=== PATIENT | female | born 1985 | race American Indian/Alaskan Native ===

== ENCOUNTER 2017-01-31 13:31 | Emergency (ER) | payer OTHER ==
[2017-01-31] MEDS: Albuterol-Ipratrop 3 mg / 0.5 (3 ml) UD IH SCH ×2 (14:00→14:15)
[2017-01-31] MEDS ORDERED: Albuterol-Ipratrop 3 mg / 0.5 (3 ml) UD ONE (14:01)
--- NOTE | 2017-01-31 14:03 | C.PDOC ---
History Of Present Illness 31 year old female, with past medical history of asthma, presents to Emergency Department for evaluation of cough and congestion for the last 2 days. Patient states that she felt short of breath today. Notes using her inhaler with no relief. Denies chest pain, fever, or chills. Time Seen by Provider: 01/31/17 13:47 Chief Complaint (Nursing): Shortness Of Breath History Per: Patient History/Exam Limitations: no limitations Onset/Duration Of Symptoms: Days (2) Current Symptoms Are (Timing): Still Present Location Of Pain: None Sick Contacts (Context): None Associated Symptoms: Cough, Nasal Congestion Ear Symptoms: Bilateral: None Recent travel outside of the [place]: No Additional History Per: Patient Past Medical History Reviewed: Historical Data, Nursing Documentation, Vital Signs Vital Signs: Last Vital Signs Temp 97.7 F 01/31/17 15:04 Pulse 91 H 01/31/17 15:04 Resp 18 01/31/17 15:04 BP 139/73 01/31/17 15:04 Pulse Ox 95 01/31/17 15:33 - Medical History PMH: Asthma, HTN Family History: States: Unknown Family Hx - Social History Hx Alcohol Use: No Hx Substance Use: No - Immunization History Hx Tetanus Toxoid Vaccination: Yes Hx Influenza Vaccination: No Hx Pneumococcal Vaccination: No Review Of Systems Constitutional: Negative for: Fever, Chills ENT: Positive for: Nose Congestion. Negative for: Nose Discharge, Throat Pain Cardiovascular: Negative for: Chest Pain, Palpitations Respiratory: Positive for: Cough, Shortness of Breath. Negative for: Sputum Gastrointestinal: Negative for: Nausea, Vomiting Physical Exam - Physical Exam Appears: Non-toxic, No Acute Distress Skin: Normal Color, Warm, Dry Head: Atraumatic, Normacephalic Eye(s): bilateral: Normal Inspection Oral Mucosa: Moist Neck: Supple Cardiovascular: Rhythm Regular, No Murmur Respiratory: No Rales, No Rhonchi, Wheezing (bilaterally) Gastrointestinal/Abdominal: Soft, No Tenderness Extremity: Normal ROM, No Pedal Edema Neurological/Psych: Oriented x3, Normal Speech ED Course And Treatment O2 Sat by Pulse Oximetry: 95 (on RA) Pulse Ox Interpretation: Normal Medical Decision Making Medical Decision Making: Plan: * Albuterol treatment * Prednisone Disposition Counseled Patient/Family Regarding: Diagnosis, Need For Followup, Rx Given - Disposition Disposition: HOME/ ROUTINE Disposition Time: 14:55 Condition: IMPROVED Additional Instructions: Follow up with your primary medical doctor or clinic in 2-5 days for further evaluation. Continue with your usual asthma medications at home. Return to the emergency department at any time if symptoms persist or worsen. 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 - Scribe Statement The provider has reviewed the documentation as recorded by the Scribe Sue Celaya All medical record entries made by the Scribe were at my direction and personally dictated by me. I have reviewed the chart and agree that the record accurately reflects my personal performance of the history, physical exam, medical decision making, and the department course for this patient. I have also personally directed, reviewed, and agree with the discharge instructions and disposition. Nebulizer Treatments/Peak Flow - Duonebs Number of Bronchodilator Doses given?: 2 - Pre/Post Peak Flow Pre Treatment Peak Flow: 170 Post treatment Peak Flow: 210 - Steroid Treatment Steroid: Oral (Prednisone) - Clinical Response Clinical Response: Improved Comment: lungs are now clear
[2017-01-31 15:04] VITALS: BP 139/73; PULSE 91; RESP 18; TEMP 97.7
[2017-01-31 15:32] VITALS: O2SAT 95
== END 2017-01-31 15:27 | disposition home or self-care (01) ==
LOC: C.ER 13:31
DX: J45.909 Unspecified asthma, uncomplicated (principal); I10 Essential (primary) hypertension

== ENCOUNTER 2018-04-01 09:27 | Emergency (ER) | payer OTHER ==
[2018-04-01 09:39] VITALS: O2SAT 100
[2018-04-01] MEDS ORDERED: Sodium Chloride 0.9% 1,000 ML IV ONE (10:38)
[2018-04-01 11:10] LABS: BASO % 0.4 % (0.0-2.0); EOS # 0.2 K/uL (0.0-0.7); HEMOGLOBIN 14.3 g/dL (11.0-16.0); LYMPH # 1.2 K/uL (1.0-4.3); LYMPH % 15.3 % (20.0-40.0); MEAN CELL VOLUME 95.2 fL (81.0-99.0); MEAN CORPUSCULAR HEMOGLOBIN 32.2 pg (27.0-31.0); MEAN CORPUSCULAR HGB CONC 33.8 g/dL (33.0-37.0); MEAN PLATELET VOLUME 7.8 fL (7.2-11.7); MONO # 0.4 K/uL (0.0-0.8); NEUT # 6.2 K/uL (1.8-7.0); NEUT % 77.3 % (50.0-75.0); NRBC % 0.1 % (0.0-2.0); RBC 4.44 Mil/uL (3.80-5.20); RED CELL DISTRIBUTION WIDTH 12.2 % (11.5-14.5)
[2018-04-01 11:32] LABS: BLOOD UREA NITROGEN 13 mg/dL (7-17); CALCIUM 8.8 mg/dl (8.6-10.4); GFR NON-AFRICAN AMERICAN > 60; LIPASE 17 U/L (23-300)
[2018-04-01 11:33] LABS: ALBUMIN 5.1 g/dL (3.5-5.0); URINE BILIRUBIN NEGATIVE (NEGATIVE); URINE BLOOD 2+ (NEGATIVE); URINE CLARITY Clear (Clear); URINE COLOR Yellow (YELLOW); URINE GLUCOSE (UA) NORMAL (Normal); URINE LEUKOCYTE ESTERASE NEG Leu/uL (Negative); URINE PROTEIN NEGATIVE (NEGATIVE); URINE UROBILINOGEN NORMAL mg/dL (0.2-1.0)
[2018-04-01 11:34] LABS: ALB/GLOB RATIO 1.4 (1.0-2.1); ALT/SGPT 23 U/L (9-52); AST/SGOT 49 U/L (14-36); SQUAMOUS EPITHIAL 6 /hpf (0-5)
--- NOTE | 2018-04-01 11:40 | C.PDOC ---
History Of Present Illness 33 year old female presents with complaints of nausea, vomiting, diarrhea, and generalized abdominal pain that started last night. Patient has tried drinking gingerale and eating crackers, however reports persistent vomiting and is unable to keep anything down. She denies any fevers or chills. No known sick contacts. No recent travel. Patient notes she ate [place] food last night. She denies any bloody stool or urinary complaints. Time Seen by Provider: 04/01/18 10:11 Chief Complaint (Nursing): Abdominal Pain History Per: Patient History/Exam Limitations: no limitations Onset/Duration Of Symptoms: Days (x 2) Current Symptoms Are (Timing): Still Present Severity: Moderate Location Of Pain/Discomfort: Diffuse Associated Symptoms: Nausea, Vomiting, Diarrhea Last Bowel Movement: Today Recent travel outside of the [place]: No Past Medical History Reviewed: Historical Data, Nursing Documentation, Vital Signs Vital Signs: Last Vital Signs Temp 97.4 F L 04/01/18 09:37 Pulse 64 04/01/18 09:37 Resp 18 04/01/18 09:37 BP 145/86 04/01/18 09:37 Pulse Ox 100 04/01/18 09:37 - Medical History PMH: Asthma, HTN Family History: States: Unknown Family Hx - Social History Hx Alcohol Use: No Hx Substance Use: No - Immunization History Hx Tetanus Toxoid Vaccination: Yes Hx Influenza Vaccination: No Hx Pneumococcal Vaccination: No Review Of Systems Constitutional: Negative for: Fever, Chills, Sweats Gastrointestinal: Positive for: Nausea, Vomiting, Abdominal Pain (diffuse), Diarrhea. Negative for: Hematochezia, Hematemesis Genitourinary: Negative for: Dysuria, Frequency, Incontinence Musculoskeletal: Negative for: Back Pain Neurological: Negative for: Weakness, Dizziness Physical Exam - Physical Exam Appears: Well, Non-toxic, No Acute Distress Skin: Warm, Dry, No Rash Head: Atraumatic, Normacephalic Eye(s): bilateral: Normal Inspection Oral Mucosa: Moist Neck: Normal ROM Chest: Symmetrical Cardiovascular: Rhythm Regular, No Murmur Respiratory: Normal Breath Sounds, No Rales, No Rhonchi, No Wheezing Gastrointestinal/Abdominal: Bowel Sounds (active), Soft, Tenderness (diffuse), No Guarding, No Rebound Back: Normal Inspection, No CVA Tenderness, No Vertebral Tenderness Extremity: Bilateral: Atraumatic, Normal Color And Temperature, Normal ROM Neurological/Psych: Oriented x3, Normal Speech ED Course And Treatment - Laboratory Results Result Diagrams: 04/01/18 11:05 04/01/18 11:05 Lab Results: Total Bilirubin 1.1 mg/dL (0.2-1.3) 04/01/18 11:05 AST 49 U/L (14-36) H 04/01/18 11:05 ALT 23 U/L (9-52) 04/01/18 11:05 Alkaline Phosphatase 68 U/L (38-126) 04/01/18 11:05 Total Protein 8.8 g/dL (6.3-8.3) H 04/01/18 11:05 Albumin 5.1 g/dL (3.5-5.0) H 04/01/18 11:05 Globulin 3.7 gm/dL (2.2-3.9) 04/01/18 11:05 Albumin/Globulin Ratio 1.4 (1.0-2.1) 04/01/18 11:05 Lipase 17 U/L (23-300) L 04/01/18 11:05 Urine Color Yellow (YELLOW) 04/01/18 11:05 Urine Clarity Clear (Clear) 04/01/18 11:05 Urine pH 5.0 (5.0-8.0) 04/01/18 11:05 Ur Specific [place] 1.019 (1.003-1.030) 04/01/18 11:05 Urine Protein Negative mg/dL (NEGATIVE) 04/01/18 11:05 Urine Glucose (UA) Normal mg/dL (Normal) 04/01/18 11:05 Urine Ketones Negative mg/dL (NEGATIVE) 04/01/18 11:05 Urine Blood 2+ (NEGATIVE) H 04/01/18 11:05 Urine Nitrate Negative (NEGATIVE) 04/01/18 11:05 Urine Bilirubin Negative (NEGATIVE) 04/01/18 11:05 Urine Urobilinogen Normal mg/dL (0.2-1.0) 04/01/18 11:05 Ur Leukocyte Esterase Neg Jaun/uL (Negative) 04/01/18 11:05 Urine WBC (Auto) < 1 /hpf (0-5) 04/01/18 11:05 Urine RBC (Auto) 5 /hpf (0-3) H 04/01/18 11:05 Ur Squamous Epith Cells 6 /hpf (0-5) H 04/01/18 11:05 O2 Sat by Pulse Oximetry: 100 (on room air) Pulse Ox Interpretation: Normal Medical Decision Making Medical Decision Making: Impression: Abdominal Pain, Vomiting, Diarrhea Differential diagnosis includes but is not limited to: gastroenteritis, urinary tract infection, and dehydration Plan: -CMP, CBC, lipase -UA -IV fluids -4 mg IV Zofran -30 mg IV Toradol -20 mg IV Pepcid -Reassess after treatment Progress/Updates: Labs reviewed. UA shows +blood. Hyperkalemia, but slightly hemolyzed. Patient re-evaluated and was resting comfortably on stretcher in no distress. Discussed lab results. Patient reports feeling little better. Patient is not febrile and vital signs stable. Abdomen remains soft and nondistended. Plan is for discharge home with Rx. Patient feels comfortable going home. Disposition Counseled Patient/Family Regarding: Studies Performed, Diagnosis, Need For Followup, Rx Given - Disposition Referrals: [facility] [Outside] [facility] [Outside] Disposition: HOME/ ROUTINE Disposition Time: 12:09 Condition: GOOD Additional Instructions: Drink fluids to prevent dehydration. Take Zofran as prescribed. Take pain medicine as needed. Try low-fat diet with increase in fluids such as sport drink, gelatin. Try soup, rice, bread, crackers, cereal, bananas to help with diarrhea. 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 - Scribe Statement The provider has reviewed the documentation as recorded by the Scribe Coleen Rodriguez All medical record entries made by the Scribe were at my direction and personally dictated by me. I have reviewed the chart and agree that the record accurately reflects my personal performance of the history, physical exam, medical decision making, and the department course for this patient. I have also personally directed, reviewed, and agree with the discharge instructions and disposition.
[2018-04-01 12:44] VITALS: BP 140/84; PULSE 65; RESP 16; TEMP 97.5
== END 2018-04-01 12:43 | disposition home or self-care (01) ==
LOC: C.ER 09:27
DX: K52.9 Noninfective gastroenteritis and colitis, unspecified (principal); I10 Essential (primary) hypertension; F17.210 Nicotine dependence, cigarettes, uncomplicated
CPT/HCPCS: 80053; 81001; 81025; 83690; 85025; 96374; 96375; 99284; J1885; J2405; J7030